=== PATIENT | male | born 1980 | race African-American/Black ===

== ENCOUNTER 2019-01-04 13:40 | Emergency (ER) | payer OTHER ==
[~2019-01-04] VITALS: Ht 172.7 cm; Wt 133.8 kg
[2019-01-04 13:51] VITALS: BP 160/101
[2019-01-04] MEDS ORDERED: DIPHTH,PERTUSS(ACELL),TET TOX 0.5 ML DISP.SYRIN. VAX IM ONE (14:00)
--- NOTE | 2019-01-04 14:09 | PHYS DOC ---
Past Medical History Past Medical History: Other Additional Past Medical Histor: SLEEP APNEA Past Surgical History: No Surgical History Alcohol Use: None Drug Use: None Adult General Chief Complaint Chief Complaint: MECHANICAL FALL HPI HPI Patient is a 38 year old male with history of hypertension uncontrolled, who presents to the ED today to be related to status post falling 2 days ago. Patient states he was running around with younger children and fell. He is complaining of 10 out of 10 left wrist pain, right forearm pain, and right hamstring pain. Patient states most of the pain is on range of motion. Denies any loss of consciousness. Denies any neck pain or back pain. Denies hitting his head on the ground. He is in the ED laughing and eating jellybeans. Review of Systems Review of Systems Constitutional: Denies fever or chills [] Eyes: Denies change in visual acuity, redness, or eye pain [] HENT: Denies nasal congestion or sore throat [] Respiratory: Denies cough or shortness of breath [] Cardiovascular: No additional information not addressed in HPI [] GI: Denies abdominal pain, nausea, vomiting, bloody stools or diarrhea [] : Denies dysuria or hematuria [] Musculoskeletal: Reports left wrist pain, right forearm pain, right hamstring pain Integument: Denies rash or skin lesions [] Neurologic: Denies headache, focal weakness or sensory changes [] All other systems were reviewed and found to be within normal limits, except as documented in this note. Current Medications Current Medications Current Medications Medications (Trade) Dose Ordered Sig/Alida Start Time Stop Time Status Last Admin Dose Admin Diphtheria/ Tetanus/Acell Pertussis (Boostrix) 0.5 ml ONCE ONCE 01/04/19 14:00 01/04/19 14:01 DC 01/04/19 14:15 0.5 ML Allergies Allergies Allergies Coded Allergies Type Severity Reaction Last Updated Verified No Known Drug Allergies 01/04/19 No Physical Exam Physical Exam Constitutional: Well developed, well nourished, no acute distress, non-toxic appearance. [] HENT: Normocephalic, atraumatic, bilateral external ears normal, oropharynx moist, no oral exudates, nose normal. [] Eyes: PERRLA, EOMI, conjunctiva normal, no discharge. [] Neck: Normal range of motion, no tenderness, supple, no stridor. [] Cardiovascular:Heart rate regular rhythm, no murmur [] Lungs & Thorax: Bilateral breath sounds clear to auscultation [] Abdomen: Bowel sounds normal, soft, no tenderness, no masses, no pulsatile masses. [] Skin: Warm, dry, no erythema, no rash. [] Back: No tenderness, no CVA tenderness. [] Extremities: Left wrist with no obvious deformity. Diffuse tenderness throughout. Full range of motion to the left wrist and fingers. +2 left radial pulse. Adequate radial, medial, ulnar sensation to the left hand. Cap refill less than 2 seconds and left fingers. Right forearm with no obvious deformity, there is road rash on the right dorsal hand proximal end. Tenderness over this region. Full range of motion to the right forearm including plantar flexion and dorsiflexion. Adequate radial, medial, ulnar sensation to the right upper extremity. +2 right radial pulse. Cap refill less than 2 seconds the right fingers. Right lower extremity with no obvious deformity. Full range of motion to the right lower extremity. +2 right pedal pulse. Cap refill less than 2 seconds the right lower extremity. Sensation intact. Neurologic: Alert and oriented X 3, normal motor function, normal sensory function, no focal deficits noted. [] Psychologic: Affect normal, judgement normal, mood normal. [] Current Patient Data Vital Signs Vital Signs Date Time Temp Pulse Resp B/P (MAP) Pulse Ox O2 Delivery O2 Flow Rate FiO2 01/04/19 13:51 98.0 63 18 160/101 (120) 98 Room Air 98.0 EKG EKG [] Radiology/Procedures Radiology/Procedures []PROCEDURE: FOREARM RIGHT 2 views right forearm 01/04/2019 1:50 PM Indication: pain right forearm Comparison: None Findings: There is no acute fracture or dislocation. Articular surfaces are uninterrupted and smooth. Soft tissues are unremarkable. Impression: No evidence of acute osseous abnormality. Electronically signed by: Baljit Dias MD (01/04/2019 2:49 PM) [facility] DICTATED and SIGNED BY: BALJIT DIAS MD DATE: 01/04/19 1449 PROCEDURE: WRIST 3V LEFT 3 views left wrist 01/04/2019 1:50 PM Indication: pain left wrist Comparison: None Findings: There is no acute fracture or dislocation. Articular surfaces are uninterrupted and smooth. Soft tissues are unremarkable. Impression: No evidence of acute osseous abnormality. Electronically signed by: Baljit Dias MD (01/04/2019 2:50 PM) [facility] DICTATED and SIGNED BY: BALJIT DIAS MD DATE: 01/04/19 1450 PROCEDURE: RIGHT FEMUR XRAY RIGHT FEMUR XRAY History: Fall, pain Comparison: None. Findings: 4 views of the right femur are submitted. No acute fracture is identified. There is sclerotic lesion with central lucency of the right femoral neck. Impression: 1. No acute osseous abnormality is identified. 2. There is a focus of sclerosis and central lucency of the right femoral neck, primary consideration justen pit (Synovial herniation pit). Electronically signed by: Steven Killian MD (01/04/2019 2:56 PM) [facility] DICTATED and SIGNED BY: STEVEN KILLIAN MD DATE: 01/04/19 145 Course & Med Decision Making Course & Med Decision Making Pertinent Labs and Imaging studies reviewed. (See chart for details) This is a 38-year-old male patient presenting to the ED today complaining of left wrist pain, right forearm, and right hamstring pain status post falling 2 days ago. Tetanus was updated considering the road rash she has on the right forearm. Blood pressure was 160/101, patient has not history of hypertension and is not on any medications. Patient was advised to get a primary care doctor and follow-up. He has no cardiac or neurological symptoms. I did provided patient a clinic list for follow-up for high blood pressure. X-rays of the left wrist, right forearm, and right femur were negative for any acute findings. Femur x-rays were noted for justen pit condition. Results discussed with patient. Patient was discharged with instructions to follow-up with PCP as well as orthopedic doctor. Given tramadol prescription Dragon Disclaimer Dragon Disclaimer This electronic medical record was generated, in whole or in part, using a voice recognition dictation system. Departure Departure Impression: Primary Impression: Fall from standing Additional Impressions: Bruising Hypertension Contusion of right forearm Left wrist sprain Hamstring muscle strain Disposition: HOME, SELF-CARE Condition: STABLE Referrals: UNKNOWN PCP NAME (PCP) COURTNEY DENNIS MD follow up in 1 week Patient Instructions: Contusion, [id number], Hypertension, Muscle Strain Additional Instructions: You were evaluated in the emergency room after falling. Your x-rays were negative for any acute findings. Try to ice and elevate the affected areas. Apply Neosporin to the area on your forearm. Please establish care with a primary care doctor and follow-up for high blood pressure as well as medical management. Consider weight loss as well as diet and exercise. Scripts Tramadol Hcl (TRAMADOL HCL) 50 Mg Tablet 50 MG PO Q6HRS PRN for PAIN, #30 TAB Prov: [employer] 01/04/19 Problem Qualifiers Primary Impression: Fall from standing Encounter type: initial encounter Qualified Codes: W19.XXXA - Unspecified fall, initial encounter Additional Impressions: Hypertension Hypertension type: unspecified Qualified Codes: I10 - Essential (primary) hypertension Contusion of right forearm Encounter type: initial encounter Qualified Codes: S50.11XA - Contusion of right forearm, initial encounter Left wrist sprain Encounter type: initial encounter Qualified Codes: S63.502A - Unspecified sprain of left wrist, initial encounter Hamstring muscle strain Encounter type: initial encounter Laterality: right Qualified Codes: S76.311A - Strain of muscle, fascia and tendon of the posterior muscle group at thigh level, right thigh, initial encounter [employer] Jan 04, 2019 14:09
--- NOTE | 2019-01-04 14:51 | RAD ---
2 views right forearm 01/04/2019 1:50 PM Indication: pain right forearm Comparison: None Findings: There is no acute fracture or dislocation. Articular surfaces are uninterrupted and smooth. Soft tissues are unremarkable. Impression: No evidence of acute osseous abnormality. Electronically signed by: Baljit Mack MD (01/04/2019 2:49 PM) [facility]
--- NOTE | 2019-01-04 14:52 | RAD ---
3 views left wrist 01/04/2019 1:50 PM Indication: pain left wrist Comparison: None Findings: There is no acute fracture or dislocation. Articular surfaces are uninterrupted and smooth. Soft tissues are unremarkable. Impression: No evidence of acute osseous abnormality. Electronically signed by: Baljit Mack MD (01/04/2019 2:50 PM) [facility]
--- NOTE | 2019-01-04 14:59 | RAD ---
RIGHT FEMUR XRAY History: Fall, pain Comparison: None. Findings: 4 views of the right femur are submitted. No acute fracture is identified. There is sclerotic lesion with central lucency of the right femoral neck. Impression: 1. No acute osseous abnormality is identified. 2. There is a focus of sclerosis and central lucency of the right femoral neck, primary consideration justen pit (Synovial herniation pit). Electronically signed by: Richie Ibrahim MD (01/04/2019 2:56 PM) [place] [id number]
[2019-01-04] MEDS ORDERED: TRAM50TA PO (15:28)
== END 2019-01-04 15:33 | disposition home or self-care (01) ==
LOC: ER 13:40
DX: S63.592A Other specified sprain of left wrist, initial encounter (principal); S76.311A Strain of muscle, fascia and tendon of the posterior muscle group at thigh level, right thigh, initial encounter; S50.11XA Contusion of right forearm, initial encounter; I10 Essential (primary) hypertension; W18.39XA Other fall on same level, initial encounter; Y93.02 Activity, running; Y92.89 Other specified places as the place of occurrence of the external cause; Y99.8 Other external cause status
CPT/HCPCS: 73090; 73110; 73552; 90471; 90715; 99283

== ENCOUNTER 2020-12-04 12:15 | Emergency (ER) | payer SELFPAY ==
[~2020-12-04] VITALS: Ht 172.7 cm; Wt 136.0 kg
[~2020-12-04 12:15] MED LIST: TRAM50TA PO
[2020-12-04] MEDS: fentaNYL PF VIAL 100 MCG/2 ML VIAL IVP ONE ×2 (12:45→13:30)
[2020-12-04] MEDS ORDERED: KETOROLAC 30 MG/ML VIAL. IVP ONE (12:45)
[2020-12-04] MEDS ORDERED: IV NORMAL SALINE 1000ML BAG 1,000 ML IV ONE (12:45)
--- NOTE | 2020-12-04 12:45 | PHYS DOC ---
Past Medical History Past Medical History: Hypertension, Other Additional Past Medical Histor: SLEEP APNEA Past Surgical History: No Surgical History Smoking Status: Current Every Day Smoker Additional Information: "WEED" Alcohol Use: None Drug Use: None General Adult EDM: Chief Complaint: ABSCESS HPI: HPI: Patient is a 40 year old male who presents emergency department complaining of an infection to the back of his head. Patient feels that it is an abscess and he tried to pop it and was unable to express any pus or purulent material from his infection. Patient complains of generalized abdominal pain that has been going on for years, patient states he sees blood in his stool intermittently. Patient states the last time he seen blood in the stool was today during a bowel movement. Patient states he has periods of constipation and periods of loose stools. Patient states he has never been worked up for abdominal pain or bowel issues. Patient denies any burning with urination, denies any STI concerns. Patient states he has foot fungus and would like something for his feet. Patient denies chest pain, denies shortness of breath, denies generalized body aches, denies fever or chills, denies loss of taste or loss of smell. Patient denies chest congestion, or nasal congestion. Patient denies any other physical complaints or physical concerns. Patient denies being a cigarette smoker, denies drinking alcohol, states he smokes marijuana occasionally with friends. Review of Systems: Review of Systems: 14 body systems of review of systems have been reviewed. See HPI for pertinent positives and negative responses, otherwise all other systems are negative, nonpertinent or noncontributory. Heart Score: C/O Chest Pain: No Risk Factors: Risk Factors: DM, Current or recent (<one month) smoker, HTN, HLP, family hi story of CAD, obesity. Risk Scores: Score 0 - 3: 2.5% MACE over next 6 weeks - Discharge Home Score 4 - 6: 20.3% MACE over next 6 weeks - Admit for Clinical Observation Score 7 - 10: 72.7% MACE over next 6 weeks - Early Invasive Strategies Allergies: Allergies: Allergies Coded Allergies Type Severity Reaction Last Updated Verified No Known Drug Allergies 01/04/19 No Physical Exam: PE: Constitutional: Well developed, well nourished, no acute distress, non-toxic appearance. 40-year-old male in no apparent distress. HENT: Normocephalic, atraumatic, bilateral external ears normal, oropharynx mois t, no oral exudates, nose normal. Oropharynx moist, pink, no infectious process appreciated. Posterior occipital lymphadenopathy, no other lymphadenopathy appreciated of the head or neck. At the base of this scalp hairline occipital aspect there is a 1 cm diameter scaly lesion without drainage or purulence, induration of skin measures 3 mm in diameter, nonfluctuant. Eyes: PERRLA, EOMI, conjunctiva normal, no discharge. Neck: Normal range of motion, no tenderness, supple, no stridor. No C-spine tenderness, no meningismus signs, no nuchal rigidity. Cardiovascular:Heart rate regular rhythm, no murmur heart sounds S1-S2. Lungs & Thorax: Bilateral breath sounds clear to auscultation all lung anthony. Abdomen: Bowel sounds normal, soft, no masses, no pulsatile masses. Generalized tenderness to palpation all 4 quadrants, negative psoas sign, negative Schulz sign, negative McBurney's point tenderness, no rebound tenderness appreciated, no positive straight leg raise sign. Skin: Warm, dry, no erythema, no rash. See extremity note. Back: No tenderness, no CVA tenderness. No midline spinal tenderness. Extremities: No tenderness, no cyanosis, no clubbing, ROM intact, no edema. Scaly skin to the plantar aspect toes and in between toes, thickening of all toenails, no drainage or abscesses noted. Neurologic: Alert and oriented X 3, normal motor function, normal sensory function, no focal deficits noted. Psychologic: Affect normal, judgement normal, mood normal. : External rectal exam noted small nonerythematous external hemorrhoid at 5 o'clock position, normal rectal tone during rectal exam, occult blood sample obtained and sent to lab, no blood noted, patient tolerated procedure well, no abnormal or enlarged prostate appreciated. No rashes, no lesions of the rectal area. Current Patient Data: Labs: Laboratory Tests Test 12/04/20 13:14 12/04/20 15:05 12/04/20 16:47 White Blood Count 11.0 x10^3/uL Red Blood Count 4.69 x10^6/uL Hemoglobin 13.7 g/dL Hematocrit 40.5 % Mean Corpuscular Volume 86 fL Mean Corpuscular Hemoglobin 29 pg Mean Corpuscular Hemoglobin Concent 34 g/dL Red Cell Distribution Width 13.6 % Platelet Count 305 x10^3/uL Neutrophils (%) (Auto) 65 % Lymphocytes (%) (Auto) 21 % Monocytes (%) (Auto) 11 % Eosinophils (%) (Auto) 3 % Basophils (%) (Auto) 1 % Neutrophils # (Auto) 7.2 x10^3/uL Lymphocytes # (Auto) 2.3 x10^3/uL Monocytes # (Auto) 1.2 x10^3/uL Eosinophils # (Auto) 0.3 x10^3/uL Basophils # (Auto) 0.1 x10^3/uL Sodium Level 140 mmol/L Potassium Level 4.1 mmol/L Chloride Level 104 mmol/L Carbon Dioxide Level 28 mmol/L Anion Gap 8 Blood Urea Nitrogen 11 mg/dL Creatinine 1.2 mg/dL Estimated GFR (Cockcroft-Gault) 80.3 BUN/Creatinine Ratio 9 Glucose Level 110 mg/dL Calcium Level 8.4 mg/dL Total Bilirubin 0.7 mg/dL Aspartate Amino Transf (AST/SGOT) 17 U/L Alanine Aminotransferase (ALT/SGPT) 22 U/L Alkaline Phosphatase 98 U/L Total Protein 7.4 g/dL Albumin 3.5 g/dL Albumin/Globulin Ratio 0.9 Lipase 97 U/L Urine Collection Type Unknown Urine Color Yellow Urine Clarity Clear Urine pH 6.0 Urine Specific [place] 1.015 Urine Protein Negative mg/dL Urine Glucose (UA) Negative mg/dL Urine Ketones (Stick) Negative mg/dL Urine Blood Negative Urine Nitrite Negative Urine Bilirubin Negative Urine Urobilinogen Dipstick 1.0 mg/dL Urine Leukocyte Esterase Negative Urine RBC 0 /HPF Urine WBC 0 /HPF Urine Squamous Epithelial Cells Occ /LPF Urine Bacteria 0 /HPF Urine Opiates Screen Neg Urine Methadone Screen Neg Urine Barbiturates Neg Urine Phencyclidine Screen Neg Urine Amphetamine/Methamphetamine Neg Urine Benzodiazepines Screen Neg Urine Cocaine Screen Neg Urine Cannabinoids Screen Pos Urine Ethyl Alcohol Neg Stool Occult Blood Negative Current Medications Medications (Trade) Dose Ordered Sig/Alida Route PRN Reason Start Time Stop Time Status Last Admin Dose Admin Fentanyl Citrate (Fentanyl 2ml Vial) 50 mcg 1X ONCE IVP 12/04/20 12:45 12/04/20 12:56 DC Ketorolac Tromethamine (Toradol 30mg Vial) 30 mg 1X ONCE IVP 12/04/20 12:45 12/04/20 12:56 DC 12/04/20 13:29 Sodium Chloride 1,000 ml @ 1,000 mls/hr 1X ONCE IV 12/04/20 12:45 12/04/20 13:44 DC 12/04/20 13:29 Iohexol (Omnipaque 300 Mg/ml) 75 ml 1X ONCE IV 12/04/20 14:00 12/04/20 14:01 DC 12/04/20 14:27 Info (CONTRAST GIVEN -- Rx MONITORING) 1 each PRN DAILY PRN MC SEE COMMENTS 12/04/20 14:00 12/04/20 19:05 DC Trimethoprim/ Sulfamethoxazole (Bactrim Ds) 1 tab 1X ONCE PO 12/04/20 16:15 12/04/20 16:17 DC 12/04/20 17:19 Vital Signs: Vital Signs Date Time Temp Pulse Resp B/P (MAP) Pulse Ox O2 Delivery O2 Flow Rate FiO2 12/04/20 12:27 97.8 109 12 142/77 (98) 96 Room Air 97.8 EKG: EKG: [] Radiology/Procedures: Radiology/Procedures: PATIENT: JENNIE PIZARRO EACCOUNT: [id number] : 1980 LOCATION: ER AGE: 40 SEX: M EXAM STATUS: REG ER ORD. PHYSICIAN: KASSIDY MOORE APRN REASON: ABSCESS POSTERIOR CERVICAL SPINE PROCEDURE: CT SOFT TISSUE NECK W/CONTRAST CT NECK SOFT TISSUE WITH IV CONTRAST History:Reason: ABSCESS POSTERIOR CERVICAL SPINE / Spl. Instructions: OMNI 300 INJ 75 MLS / History: Technique: CT imaging was performed of the neck soft tissues with intravenous contrast. Coronal and sagittal reconstructions were performed. Exposure: One or more of the following individualized dose reduction techniques were utilized for this examination: 1. Automated exposure control 2. Adjustment of the mA and/or kV according to patient size 3. Use of iterative reconstruction technique. Comparison: None Findings: Induration of the posterior superior midline neck subcutaneous tissues with focal heterogeneous regions. There is overlying skin thickening. No evidence of loculated fluid collection to suggest abscess. Mild right lateral mid neck subcutaneous induration. Normal appearance of the bilateral submandibular and parotid glands. Unremarkable thyroid gland. No pathologic lymphadenopathy. Imaged lung apices are unremarkable. Imaged paranasal sinuses and mastoid air cells are clear. Imaged orbits and intracranial contents are unremarkable. Impression: 1. Posterior superior neck subcutaneous induration with heterogeneous foci, may represent phlegmon. No evidence of abscess. 2. Right lateral mid neck subcutaneous induration. Electronically signed by: Ho Javed DO (12/04/2020 3:12 PM) [facility] DICTATED and SIGNED BY: HO JAVED DO DATE: 12/04/20 [id number] PATIENT: JENNIE PIZARRO EACCOUNT: [id number] : 1980 LOCATION: ER AGE: 40 SEX: M EXAM STATUS: REG ER ORD. PHYSICIAN: KASSIDY MOORE APRN REASON: ABDOMINAL PAIN, OMNI 300 INJ 75 MLS PROCEDURE: CT ABD PELV W/ IV CONTRST ONLY EXAM: Abdomen and pelvis CT with intravenous contrast. HISTORY: Pain. TECHNIQUE: Computed tomographic images of the abdomen and pelvis were obtained following the administration of intravenous contrast. Multiplanar reformatting was performed. *One or more of the following individualized dose reduction techniques were utilized for this examination: 1. Automated exposure control. 2. Adjustment of the mA and/or kV according to patient size. 3. Use of iterative reconstruction technique. COMPARISON: None. FINDINGS: Evaluation of the lower thorax demonstrates calcified right hilar granulomas. There is no infiltrate or pleural effusion. There is hepatic steatosis. No suspicious hepatic lesion is seen. The gallbladder, pancreas, and adrenal glands are unremarkable. There is a small splenule adjacent to an otherwise unremarkable spleen. There are is contrast within the renal collecting system. This limits evaluation for small renal stones. There is no evidence of hydronephrosis. No solid or cystic lesion is seen. There is no appendicitis. There is no bowel obstruction. The bladder is unremarkable. There is a tiny fat-containing periumbilical hernia. The aorta is normal in caliber. There is no lymphadenopathy. There is no suspicious osseous lesion. There is a prominent incidental synovial herniation pit within the right femoral neck. IMPRESSION: 1. Hepatic steatosis. 2. No acute abdominal or pelvic finding. Electronically signed by: Dorothy Erickson MD (12/04/2020 2:41 PM) [id number] DICTATED and SIGNED BY: DOROTHY ERICKSON MD DATE: 12/04/20 [id number] Course & Med Decision Making: Course & Med Decision Making Pertinent Labs and Imaging studies reviewed. (See chart for details) 40-year-old male, vital signs reviewed, presents emergency department concerning for abdominal pain, infection on back of head, and athlete's foot. Physical examination concerning for abscess versus tinea capitis on back of head, athlete's foot with onychomycosis, will start ED work-up to rule out acute abdominal process related to patient's complaint of abdominal pain. Patient's labs equivocal, CT result of abdomen pelvis was nonconcerning for acute process, CT soft tissue neck was nonconcerning for abscess. Discussed findings with patient, will treat onychomycosis with pulse dose terbinafine, this will most likely resolve his tinea capitis and athlete's foot. The patient's stool was negative for occult blood. Patient denied any abdominal pain upon reexamination. Patient gave verbal understanding of discharge home instructions, prescription instructions for pulse dosing of terbinafine, follow-up with primary care, strict return to emergency department precautions and concerns, patient was discharged to home without incident. Dragon Disclaimer: DragClip Disclaimer: This electronic medical record was generated, in whole or in part, using a voice recognition dictation system. Departure Departure Impression: Primary Impression: Tinea capitis Additional Impressions: Onychomycosis Abdominal pain of unknown etiology Disposition: 01 DC HOME SELF CARE/HOMELESS Condition: GOOD Referrals: UNKNOWN PCP NAME (PCP) Additional Instructions: I am treating the fungal infection of your scalp and your toenail fungal infection with terbinafine pulsed dosing regimen. Please take 500 mg each day for 7 days then no medication for 21 days, repeat this 4 times. Return to the emergency department for worsening symptoms or other concerns, please follow-up with your primary care doctor for evaluation of your scalp fungal infection. EMERGENCY DEPARTMENT GENERAL DISCHARGE INSTRUCTIONS Thank you for coming to [facility] Emergency Department (ED) today and trusting us with you care. We trust that you had a positive experience in our Emergency Department. If you wish to speak to the department management, you may call the Director at [phone]. YOUR FOLLOW UP INSTRUCTIONS ARE FOLLOWS: 1. Do you have a private Doctor? If you do not have a private doctor, please ask for a resource list of physicians or clinics that may be able to assist you with follow up care. 2. The Emergency Physicain has interpreted your x-rays. The X-Ray specialist will also review them. If there is a change in the findings, you will be notified in 48 hours when at all possible. 3. A lab test or culture has been done, your results will be reviewed and you will be notified if you need a change in treatment. ADDITIONAL INSTRUCTIONS AND INFORMATION: 1. Your care today has been supervised by a physician who is specially trained in emergency care. Many problems require more than one evaluation for a complete diagnosis and treatment. We recommend that you schedule your follow up appointment as recommended to ensure complete treatment of you illness or injury. If you are unable to obtain follow up care and continue to have a problem, or if your condition worsens, we recommend that you return to the ED. 2. We are not able to safely determine your condition over the phone nor are we able to give sound medical advice over the phone. For these safety reasons, if you call for medical advice we will ask you to come to the ED for further evaluation. 3. If you have any questions regarding these discharge instructions please call the ED at [phone]. SAFETY INFORMATION: In the interest of safety, wellness, and injury prevention; we encourage you to wear your sealbelt, if you smoke; quite smoking, and we encourage family to use a protective helmet for bicycling and other sporting events that present an increased risk for head injury. IF YOUR SYMPTOMS WORSEN OR NEW SYMPTOMS DEVELOP, OR YOU HAVE CONCERNS ABOUT YOUR CONDITION; OR IF YOUR CONDITION WORSENS WHILE YOU ARE WAITING FOR YOUR FOLLOW UP APPOINTMENT; EITHER CONTACT YOUR PRIMARY CARE DOCTOR, THE PHYSICIAN WHOSE NAME AND NUMBER YOU WERE GIVEN, OR RETURN TO THE ED IMMEDIATELY. Scripts Terbinafine Hcl (TERBINAFINE HCL) 250 Mg Tablet 2 TAB PO DAILY for 7 Days, #14 TAB 4 Refills TAKE 500MG ONCE A DAY FOR 7 DAYS THEN NO MEDICATION FOR 21 DAYS. REPEAT THIS FOR A TOTAL 4 TIMES. Prov: KASSIDY MOORE APRN 12/04/20 KASSIDY MOORE APRN Dec 04, 2020 12:45
[2020-12-04 13:25] LABS: BASO # 0.1 x10^3/uL (0.0-0.2); BASO % 1 % (0-3); EOS # 0.3 x10^3/uL (0.0-0.7); EOS % 3 % (0-3); HEMATOCRIT 40.5 % (39.0-53.0); HEMOGLOBIN 13.7 g/dL (13.0-17.5); LYMPH # 2.3 x10^3/uL (1.0-4.8); LYMPH % 21 % (24-48); MEAN CORPUSCULAR HEMOGLOBIN 29 pg (25-35); MEAN CORPUSCULAR HGB CONC 34 g/dL (31-37); MEAN CORPUSCULAR VOLUME 86 fL (79-100); MONO # 1.2 x10^3/uL (0.0-1.1); MONO % 11 % (0-9); NEUT # 7.2 x10^3/uL (1.8-7.7); NEUT % 65 % (31-73); PLATELET COUNT 305 x10^3/uL (140-400); RED BLOOD COUNT 4.69 x10^6/uL (4.30-5.70); RED CELL DISTRIBUTION WIDTH 13.6 % (11.5-14.5)
[2020-12-04 13:43] LABS: CALCIUM 8.4 mg/dL (8.5-10.1); CREATININE 1.2 mg/dL (0.7-1.3); GFR 80.3; POTASSIUM 4.1 mmol/L (3.5-5.1)
[2020-12-04 13:53] LABS: ALBUMIN 3.5 g/dL (3.4-5.0); ALBUMIN/GLOBULIN RATIO 0.9 (1.0-1.7); TOTAL BILIRUBIN 0.7 mg/dL (0.2-1.0); TOTAL PROTEIN 7.4 g/dL (6.4-8.2)
[2020-12-04] MEDS ORDERED: CONTRAST GIVEN. MC PRN (14:00)
[2020-12-04] MEDS ORDERED: IOHEXOL 300 MG/ML 100ML VIAL. IV ONE (14:00)
--- NOTE | 2020-12-04 14:43 | RAD ---
EXAM: Abdomen and pelvis CT with intravenous contrast. HISTORY: Pain. TECHNIQUE: Computed tomographic images of the abdomen and pelvis were obtained following the administ ration of intravenous contrast. Multiplanar reformatting was performed. *One or more of the following individualized dose reduction techniques were utilized for this examina tion: 1. Automated exposure control. 2. Adjustment of the mA and/or kV according to patient size. 3. Use of iterative reconstruction technique. COMPARISON: None. FINDINGS: Evaluation of the lower thorax demonstrates calcified right hilar granulomas. There is no i nfiltrate or pleural effusion. There is hepatic steatosis. No suspicious hepatic lesion is seen. The gallbladder, pancreas, and adrenal glands are unremarkable. There is a small splenule adjacent to an otherwise unremarkable spleen. There are is contrast within the renal collecting system. This limits evaluation for small renal stones. There is no evidence of hydronephrosis. No solid or cystic lesion is seen. There is no appendicitis. There is no bowel obstruction. The bladder is unremarkable. There is a tiny fat-containing periumbilical hernia. The aorta is normal in caliber. There is no lymphadeno delmer. There is no suspicious osseous lesion. There is a prominent incidental synovial herniation pit within the right femoral neck. IMPRESSION: 1. Hepatic steatosis. 2. No acute abdominal or pelvic finding. Electronically signed by: Dorothy Gamez MD (12/04/2020 2:41 PM) [id number]
--- NOTE | 2020-12-04 15:15 | RAD ---
CT NECK SOFT TISSUE WITH IV CONTRAST History:Reason: ABSCESS POSTERIOR CERVICAL SPINE / Spl. Instructions: OMNI 300 INJ 75 MLS / History: Technique: CT imaging was performed of the neck soft tissues with intravenous contrast. Coronal and s agittal reconstructions were performed. Exposure: One or more of the following individualized dose reduction techniques were utilized for thi s examination: 1. Automated exposure control 2. Adjustment of the mA and/or kV according to patient size 3. Use of iterative reconstruction technique. Comparison: None Findings: Induration of the posterior superior midline neck subcutaneous tissues with focal heterogeneous regio ns. There is overlying skin thickening. No evidence of loculated fluid collection to suggest abscess. Mild right lateral mid neck subcutaneous induration. Normal appearance of the bilateral submandibular and parotid glands. Unremarkable thyroid gland. No pathologic lymphadenopathy. Imaged lung apices are unremarkable. Imaged paranasal sinuses and mastoid air cells are clear. Imaged orbits and intracranial contents are unremarkable. Impression: 1. Posterior superior neck subcutaneous induration with heterogeneous foci, may represent phlegmon. No evidence of abscess. 2. Right lateral mid neck subcutaneous induration. Electronically signed by: Ho Javed DO (12/04/2020 3:12 PM) [facility]
[2020-12-04 15:24] LABS: BILIRUBIN,URINE NEGATIVE (NEG); CLARITY,URINE CLEAR; COLOR,URINE YELLOW; NITRITE,URINE NEGATIVE (NEG); PROTEIN,URINE NEGATIVE (NEG-TRACE)
[2020-12-04 15:29] LABS: AMPHETAMINE/METHAMPHETAMINE NEG (NEG); BARBITURATES NEG (NEG); BENZODIAZEPINES NEG (NEG); CANNABINOIDS POS (NEG); COCAINE NEG (NEG); METHADONE NEG (NEG); OPIATES NEG (NEG); PHENCYCLIDINE NEG (NEG)
[2020-12-04 15:41] LABS: BACTERIA,URINE 0 /HPF (0-FEW); RBC,URINE 0 /HPF (0-2); WBC,URINE 0 /HPF (0-4)
[2020-12-04] MEDS ORDERED: SMZ/TMP 800/160MG TABLET. PO ONE (16:15)
[2020-12-04 17:00] LABS: FECAL OB PT NEGATIVE (NEG)
[2020-12-04 17:14] VITALS: BP 148/92
[2020-12-04] MEDS ORDERED: TERB250T84 PO (18:42)
== END 2020-12-04 19:05 | disposition home or self-care (01) ==
LOC: ER 12:15
DX: B35.0 Tinea barbae and tinea capitis (principal); B35.1 Tinea unguium; R10.84 Generalized abdominal pain; I10 Essential (primary) hypertension; F17.210 Nicotine dependence, cigarettes, uncomplicated
CPT/HCPCS: 36415; 70491; 74177; 80053; 80307; 81001; 82274; 83690; 85025; 96361; 96374; 99285; J1885; J7030; Q9967; J3010

== ENCOUNTER 2021-05-31 11:02 | Emergency (ER) | payer SELFPAY ==
[~2021-05-31] VITALS: Ht 175.3 cm; Wt 131.0 kg
[~2021-05-31 11:02] MED LIST changes: +TERB250T84 PO
[2021-05-31 11:31] VITALS: BP 166/112
[2021-05-31] MEDS ORDERED: FLUORESCEIN OPHTH TEST STRIP. OS ONE (12:00)
[2021-05-31] MEDS ORDERED: TETRACAINE 0.5% OPHTH SOLUTION 4ML BOTTLE. OS ONE (12:00)
[2021-05-31] MEDS ORDERED: KETO5DRO4 EACHEYE (13:10)
[2021-05-31] MEDS ORDERED: CETI10TA74 PO (13:10)
--- NOTE | 2021-05-31 13:10 | PHYS DOC ---
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 Patient denies any trauma. Denies any vision loss. Reports bilateral eye clear drainage for 1 year. (CATY WALTERS DYEING MACHINE FEEDER) Review of Systems: Review of Systems: Constitutional: Denies fever or chills. [] Eyes: Reports left eye lid swelling and bilateral eye drainage denies change in visual acuity. [] Musculoskeletal: Denies back pain or joint pain. [] Integument: Denies rash. [] Neurologic: Denies headache, focal weakness or sensory changes. [] Psychiatric: Denies depression or anxiety. [] (CATY WALTERS DYEING MACHINE FEEDER) Heart Score: C/O Chest Pain: N/A Risk Factors: Risk Factors: DM, Current or recent (<one month) smoker, HTN, HLP, family history of CAD, obesity. Risk Scores: Score 0 - 3: 2.5% MACE over next 6 weeks - Discharge Home Score 4 - 6: 20.3% MACE over next 6 weeks - Admit for Clinical Observation Score 7 - 10: 72.7% MACE over next 6 weeks - Early Invasive Strategies (CATY WALTERS Luciana DYEING MACHINE FEEDER) Current Medications: Current Medications Medications (Trade) Dose Ordered Sig/Alida Start Time Stop Time Status Last Admin Dose Admin Fluorescein Sodium (Ful-Luiza) 1 strip 1X ONCE 05/31/21 12:00 05/31/21 12:01 DC 05/31/21 12:56 1 STRIP Tetracaine HCl (Tetracaine) 1 drop 1X ONCE 05/31/21 12:00 05/31/21 12:01 DC 05/31/21 12:57 1 DROP (SELENACATY Luciana DYEING MACHINE FEEDER) Allergies: Allergies: Allergies Coded Allergies Type Severity Reaction Last Updated Verified No Known Drug Allergies 01/04/19 No (SELENACATY Luciana DYEING MACHINE FEEDER) Physical Exam: PE: Constitutional: Well developed, well nourished, no acute distress, non-toxic appearance. [] HENT: Normocephalic, atraumatic, bilateral external ears normal, oropharynx moist, no oral exudates, nose normal. [] Eyes: P ERRLA, EOMI, conjunctiva normal Left upper eyelid is mildly swollen. There is clear drainage from bilateral eyes Bilateral conjunctive are slightly injected Vision acuity documented on the nursing notes Eye exam under Elkins lamp is negative. Neck: Normal range of motion, no tenderness, supple, no stridor. [] Skin: Warm, dry, no erythema, no rash. [] Back: No tenderness, no CVA tenderness. [] Extremities: No tenderness, no cyanosis, no clubbing, ROM intact, no edema. [] Neurologic: Alert and oriented X 3, normal motor function, normal sensory funct ion, no focal deficits noted. [] Psychologic: Affect normal, judgement normal, mood normal. [] (CATY WALTERS APRN) Current Patient Data: Vital Signs: Vital Signs Date Time Temp Pulse Resp B/P (MAP) Pulse Ox O2 Delivery O2 Flow Rate FiO2 05/31/21 11:31 98.6 98 16 166/112 (110) 98 Room Air 98.6 (CATY WALTERS DYEING MACHINE FEEDER) EKG: EKG: [] (CATY WALTERS APRN) Radiology/Procedures: Radiology/Procedures: [] (CATY WALTERS APRN) Course & Med Decision Making: Course & Med Decision Making Pertinent Labs and Imaging studies reviewed. (See chart for details) This is a 40-year-old male patient presented to the ED today complaining of left upper eyelid swelling that he noted this morning when he woke up. Is also complaining of bilateral eyes clear drainage for 1 year. Visual acuities were done and negative, see nurses notes. Eye exam was done under Elkins lamp and is negative. Left upper eyelid looks like an insect bite type of swelling. Discharged with instructions to take Zantac. Given prescription for Zaditor. Follow-up with latrine cleaner in 1 week if symptoms persist Blood pressure was 166/112 with a heart rate of 98, history of hypertension, patient states he did not take his blood pressure medicines this morning. Advised patient to take his medicines when he gets home. (CATY WALTERS DYEING MACHINE FEEDER) Course & Med Decision Making I have reviewed and was available for consultation in the emergency department for this patient that was seen by midlevel provider. Agree with plan. Keri Gonzalez DO (KERI GONZALEZ DO) Jerald Disclaimer: Jerald Disclaimer: This electronic medical record was generated, in whole or in part, using a voice recognition dictation system. (CATY WALTERS APRN) Departure Departure Impression: Primary Impression: Eyelid gland swelling Qualified Codes: H02.846 - Edema of left eye, unspecified eyelid Additional Impression: Allergic conjunctivitis of both eyes Disposition: HOME / SELF CARE / HOMELESS Condition: STABLE Referrals: NO PCP (PCP) MARTÍNEZ HERNÁNDEZ MD follow up in one week with the provided eye doctor Patient Instructions: Allergic Conjunctivitis, [id number] Additional Instructions: You were evaluated in the emergency room. We sent prescription medicine to your pharmacy. Take the medication as ordered. Follow-up with the provided latrine cleaner in 1 week if symptoms persist Scripts Ketotifen Fumarate (ZADITOR) 5 Ml Drops 1 DROP EACHEYE BID, #5 ML 1 Refill Prov: CATY WALTERS APRN 05/31/21 Cetirizine Hcl (ZYRTEC) 10 Mg Tablet 1 TAB PO DAILY, #30 TAB 2 Refills Prov: CATY WALTERS APRN 05/31/21 CATY WALTERS APRN May 31, 2021 13:10 KERI GONZALEZ DO May 31, 2021 14:25
== END 2021-05-31 13:21 | disposition home or self-care (01) ==
LOC: ER 11:02
DX: H02.844 Edema of left upper eyelid (principal); H10.13 Acute atopic conjunctivitis, bilateral; I10 Essential (primary) hypertension; F17.200 Nicotine dependence, unspecified, uncomplicated
CPT/HCPCS: 99283